=== PATIENT | male | born 1960 | race African-American/Black ===

== ENCOUNTER 2018-10-16 19:03 | Emergency (ER) | payer OTHER, SELFPAY ==
[2018-10-16 21:28] LABS: #Basophils 0.1 thou/uL (0.0-0.2); #Eosinphils 0.1 thou/uL (0.0-0.7); #Lymphocytes 2.5 thou/uL (1.20-3.40); #Monocytes 0.8 thou/uL (0.11-0.59); #Neutrophils 5.2 thou/uL (1.40-6.50); %Basophils 0.7 % (0.0-1.0); %Eosinophils 1.3 % (0.0-10.0); %Lymphocytes 29.1 % (21.0-51.0); %Monocytes 8.8 % (0.0-10.0); %Neutrophils 60.2 % (42.0-75.0); Hemoglobin 13.6 g/dL (14.0-18.0); Mean Corpuscular HGB CONC 32.1 g/dL (32.0-36.0); Mean Corpuscular Hemoglobin 26.2 pg (27.0-31.0); Mean Corpuscular Volume 81.8 fL (78.0-98.0); Mean Platelet Volume 7.1 fL (7.4-10.4); Platelet Count 272 thou/uL (130-400); RBC Distribution Width 10.8 % (11.5-14.5); Red Blood Cell (RBC) Count 5.18 mill/uL (4.70-6.10); White Blood Cell (WBC) Count 8.7 thou/uL (4.8-10.8)
--- NOTE | 2018-10-16 21:40 | RAD ---
THREE VIEWS OF THE RIGHT FOOT: 10/16/18 COMPARISON: None. HISTORY: Right foot pain. FINDINGS: Three views of the right foot shows no evidence of acute fracture or dislocation. Degenerative change is see in the intertarsal joint of the great toe. Soft tissue swelling is seen on the lateral aspect of the foot near the metatarsophalangeal joint. IMPRESSION: No evidence of acute osseous abnormality. POS: C
[2018-10-16 21:41] LABS: ALT (SGPT) 27 U/L (8-55); AST (SGOT) 25 U/L (5-34); Albumin 3.8 g/dL (3.5-5.0); Alkaline Phosphatase 76 U/L (40-150); Anion Gap 13 mmol/L (10-20); BUN (Urea Nitrogen) 15 mg/dL (8.4-25.7); Bilirubin, Total 1.1 mg/dL (0.2-1.2); Calc. Creatinine Clearance 0 mL/min (70-130); Calcium 9.9 mg/dL (7.8-10.44); Carbon Dioxide 27 mmol/L (22-29); Chloride 100 mmol/L (98-107); Estimated GFR-MDRD 74; Globulin 3.6 g/dL (2.4-3.5); Glucose 142 mg/dL (70-105); Potassium 4.4 mmol/L (3.5-5.1); Protein, Total 7.4 g/dL (6.0-8.3); Sodium 136 mmol/L (136-145)
[2018-10-16] MEDS ORDERED: Bacitracin Zinc 1 Packet ONE (22:24)
== END 2018-10-16 22:37 | disposition home or self-care (01) ==
LOC: ERS 19:03
DX: L97.519 Non-pressure chronic ulcer of other part of right foot with unspecified severity (principal); L03.115 Cellulitis of right lower limb; F17.210 Nicotine dependence, cigarettes, uncomplicated; E11.9 Type 2 diabetes mellitus without complications
CPT/HCPCS: 80053; 85025; C1776

== ENCOUNTER 2019-01-09 13:28 | Emergency (ER) | payer SELFPAY | END 2019-01-09 14:43 | disposition home or self-care (01) | LOC: ERS 13:28 | DX: E11.621 Type 2 diabetes mellitus with foot ulcer (principal); F17.210 Nicotine dependence, cigarettes, uncomplicated | CPT/HCPCS: 99282 ==

== ENCOUNTER 2019-01-31 09:04 | Outpatient (CLI) | payer OTHER ==
--- NOTE | 2019-01-31 14:19 | HP ---
HISTORY OF PRESENT ILLNESS: Mr. Gal García is a very pleasant 58-year-old gentleman, who presents [facility] for evaluation of an ulceration of the plantar surface of the right foot. The patient was referred to the [facility]ound Center by Kathie Nieves, his nurse practitioner on 01/26/2019. At this time, the patient was placed on a course of p.o. clindamycin. Today, the patient reports fever and chills. The patient states he has also been seen in the emergency department for the ulceration of the plantar surface of the right foot. PAST MEDICAL HISTORY: Diabetes mellitus. PAST SURGICAL HISTORY: Negative. MEDICATIONS: Clindamycin. ALLERGIES: NO KNOWN DIAGNOSED ALLERGIES. SOCIAL HISTORY: Social history is significant for tobacco use of 1 pack of cigarettes per day for 25 years. The patient also reports the consumption of 2 to 3 drinks approximately every 2 weeks. FAMILY HISTORY: Family history is significant for diabetes mellitus. The patient's mother was diagnosed with diabetes mellitus. Family history is negative for coronary artery disease. PHYSICAL EXAMINATION: VITAL SIGNS: Temperature 99.9, pulse 105, respirations 23, and blood pressure 159/96. Accu-Chek 281. GENERAL: A 58-year-old gentleman, lying on table in examination room, in [id number] distress. HEENT: Normocephalic and atraumatic. NECK: No nuchal rigidity. CHEST: Clear to auscultation. CV: Regular rate and rhythm. ABDOMEN: Soft. EXTREMITIES: An ulceration of the plantar surface of the right foot is present, which measures approximately 1.3 x 0.7 cm. Granulation tissue is present within the wound margins. No purulent drainage is associated with the wound. No maceration of the skin of the periwound is noted. A dorsalis pedis pulse and posterior tibial pulse are both palpable on the right. A large blister is present over the plantar surface of the right forefoot and mid foot. Hemorrhagic fluid is contained within the blister. An opening was made in the blister and cultures of the hemorrhagic fluid contained within the blister were obtained and sent for aerobic and anaerobic studies. Erythema of the dorsum of the right foot is present as well as erythema extending from the blister over the right lower leg. NEUROLOGIC: Grossly nonfocal. ASSESSMENT AND PLAN: 1. Lesions of right foot as described above. I have discussed the treatment plan with Dr. Harman Villalba and the patient will be referred to the emergency department for admission for cellulitis. I have explained to the patient that Surgical and Infectious Diseases consultations may be obtained. I have explained to the patient that imaging of the right foot may also be obtained. The patient understands and is in agreement with the preceding treatment plan. He agrees to be taken to the emergency department upon his discharge from clinic today. 2. Diabetes mellitus. The patient's Accu-Chek in clinic today is 281. Job ID: [id number]
== END 2019-01-31 09:05 | disposition home or self-care (01) ==
LOC: WCC 09:04
PROVIDERS: ATTEND Family Medicine
DX: L98.9 Disorder of the skin and subcutaneous tissue, unspecified (principal); E11.9 Type 2 diabetes mellitus without complications
CPT/HCPCS: 36416; 87070; 87077; 87186; 87205; 97602; 99203; G0463

== ENCOUNTER 2019-01-31 10:49 | Inpatient (IN) | payer SELFPAY ==
[~2019-01-31 10:49] MED LIST: ISOVUE-370 76%-LOCM 1 ML ONE
[2019-01-31] MEDS ORDERED: Adacel (T-DAP) 0.5 ML SYRINGE ONE (14:03)
[2019-01-31 14:05] LABS: Hemoglobin 14.1 g/dL (14.0-18.0); Mean Corpuscular HGB CONC 34.6 g/dL (32.0-36.0); Mean Corpuscular Hemoglobin 28.3 pg (27.0-31.0); Mean Corpuscular Volume 81.8 fL (78.0-98.0); Mean Platelet Volume 7.1 fL (7.4-10.4); Platelet Count 281 thou/uL (130-400); RBC Distribution Width 11.2 % (11.5-14.5); Red Blood Cell (RBC) Count 4.98 mill/uL (4.70-6.10); White Blood Cell (WBC) Count 18.1 thou/uL (4.8-10.8)
[2019-01-31 14:18] LABS: ALT (SGPT) 39 U/L (8-55); AST (SGOT) 22 U/L (5-34); Albumin 3.5 g/dL (3.5-5.0); Alkaline Phosphatase 97 U/L (40-150); Anion Gap 11 mmol/L (10-20); BUN (Urea Nitrogen) 13 mg/dL (8.4-25.7); Bilirubin, Total 1.2 mg/dL (0.2-1.2); Calc. Creatinine Clearance 0 mL/min (70-130); Calcium 9.5 mg/dL (7.8-10.44); Carbon Dioxide 26 mmol/L (22-29); Chloride 100 mmol/L (98-107); Estimated GFR-MDRD 83; Globulin 4.1 g/dL (2.4-3.5); Glucose 212 mg/dL (70-105); Protein, Total 7.6 g/dL (6.0-8.3); Sodium 133 mmol/L (136-145)
[2019-01-31 14:18] LABS: Band 3 % (5-11); Eosinophils 1 % (0-10); Lymphocytes 17 % (21-51); MDiff Complete? YES; Monocytes 4 % (0-10); Neutrophil 75 % (42-75); Platelet Morphology Comment Appears Adequate; RBC Morphology Normal
[2019-01-31] MEDS ORDERED: Clindamycin/D5W 900 mg/50 ml Premix Bag ONE (14:24)
[2019-01-31] MEDS ORDERED: Piperacillin/Tazobactam 4.5 GM VIAL ONE (15:01)
--- NOTE | 2019-01-31 15:08 | CT ---
CT RIGHT FOOT WITH CONTRAST: Date: 01/31/19 INDICATION: Numbness and tingling in the feet with right foot pain. COMPARISON: Right foot radiograph dated 10/16/18. FINDINGS: There is an ulceration seen subjacent to the fifth metatarsal head measuring 2.0 x approximately 1.5 cm. No definite drainable fluid collection is evident. There is mild cellulitis surrounding the plant ar ulceration. No destructive osteolysis is evident. There is mild scattered forefoot and midfoot ost eoarthrosis. IMPRESSION: 1. Plantar base wound underlying the fifth metatarsal head without evidence of a drainable fluid col lection. 2. Cellulitis surrounding the plantar base wound with prominent edematous change of the soft tissues of the right foot. 3. No destructive osteolysis is grossly evident to suggest the presence of osteomyelitis. POS: OFF
[2019-01-31] MEDS ORDERED: Ondansetron ODT 4 MG TAB SL PRN (18:37)
[2019-01-31] MEDS ORDERED: Ondansetron PF 4 MG/2 ML Vial IVP PRN (18:37)
[2019-01-31] MEDS ORDERED: Acetaminophen 325 MG TAB PO PRN (18:37)
[2019-01-31] MEDS: Sodium Chloride 0.9% 1,000 ML IV SCH (19:42)
[2019-01-31 19:58] VITALS: BMI 22.5
[2019-01-31] MEDS: Piperacillin/Tazobactam 3.375 GM in Sodium Chloride 0.9% 100 ML IVPB SCH (20:31)
[2019-01-31] MEDS ORDERED: Clindamycin/D5W 900 MG in Premix Bag 1 BAG IVPB SCH (22:00)
[2019-02-01] MEDS: Piperacillin/Tazobactam 3.375 GM in Sodium Chloride 0.9% 100 ML IVPB SCH (02:36)
[2019-02-01] MEDS: Sodium Chloride 0.9% 1,000 ML IV SCH ×2 (05:47→22:47)
[2019-02-01] MEDS ORDERED: Insulin Regular 300 UNITS/3 ML VIAL SC PRN (09:25)
[2019-02-01] MEDS ORDERED: Dextrose 5% in Water 1,000 ML IV PRN (09:25)
[2019-02-01] MEDS ORDERED: Dextrose 50% Abboject 50 ML SYRINGE IVP PRN (09:25)
[2019-02-01] MEDS ORDERED: Acetaminophen 325 MG TAB PO PRN (09:26)
[2019-02-01] MEDS ORDERED: metFORMIN 500 MG TAB PO SCH (09:30)
[2019-02-01] MEDS ORDERED: Lisinopril 2.5 MG TAB PO SCH (09:30)
[2019-02-01] MEDS ORDERED: Aspirin Chewable 81 MG TAB PO SCH (09:45)
[2019-02-01] MEDS ORDERED: Sodium Chloride 0.9% 1,000 ML IV SCH (11:00)
--- NOTE | 2019-02-01 11:27 | CON ---
DATE OF CONSULTATION: HISTORY OF PRESENT ILLNESS: Gal García is a 58-year-old black male, sent to the emergency room by Wound Care, Dr. Evans, for a right fifth toe. 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 He has been dealing with the ulcer in outpatient wound care. He has had a CAT scan and x-rays revealing osteomyelitis. On the plantar aspect of his right foot, there is a 1.5 cm to 2 cm neuropathic ulcer with communication in the metatarsophalangeal joint of the fifth toe. I have recommended amputation of the right fifth toe and metatarsal with postoperative wound VAC application. The patient is agreeable. He has been placed on vancomycin and Zosyn in the hospital. ALLERGIES: NONE. SOCIAL HISTORY: Tobacco, a cigar a day. Alcohol rarely. MEDICATIONS: At home, not listed in the hospital. He is on aspirin, clindamycin, Zosyn, vancomycin, metformin, and lisinopril. PAST SURGICAL HISTORY: Laparoscopic cholecystectomy. PAST MEDICAL HISTORY: Diabetes mellitus. REVIEW OF SYSTEMS: Ten-point noncontributory. PHYSICAL EXAMINATION: VITAL SIGNS: Temperature 98 degrees, pulse 81, and blood pressure 136/68. HEENT: Unremarkable. LUNGS: Clear to auscultation. CARDIAC: Regular rate and rhythm. No murmur or gallop. ABDOMEN: Soft and nontender. EXTREMITIES: Palpable femoral, popliteal, dorsalis pedis, and posterior tibial pulses. Right foot neuropathic ulcer beneath the metatarsophalangeal joint of fifth toe communicating to the bone and joint. Mild cellulitis. Mild edema. LABORATORY DATA: White count 18 and hemoglobin 14. Sodium 133, BUN 13, creatinine 1.1, and glucose 212. ASSESSMENT AND PLAN: Diabetic ulceration wound with communication in the right fifth toe and metatarsal. Recommend amputation of the right fifth toe and metatarsal. We will consult Wound Care. He has already established outpatient wound care. He will need wound VAC, postoperative use. He understands risks, benefits, and consents. Job ID: [id number]
[2019-02-01] MEDS ORDERED: Fentanyl 100 MCG/2 ML VIAL ONE ×2 (11:55→13:33)
[2019-02-01] MEDS ORDERED: Clindamycin/D5W 900 mg/50 ml Premix Bag ONE (12:00)
[2019-02-01] MEDS ORDERED: Promethazine HCl 25 MG/ML VIAL IM PRN (13:19)
[2019-02-01] MEDS ORDERED: Ondansetron HCl/PF 4 MG/2 ML Vial IVP PRN (13:19)
[2019-02-01] MEDS ORDERED: Promethazine HCl 25 MG/ML VIAL SLOW IVP PRN (13:19)
[2019-02-01] MEDS ORDERED: Acetaminophen 500 MG TAB PO PRN (13:26)
[2019-02-01] MEDS ORDERED: Ibuprofen 600 MG TAB PO PRN (13:26)
[2019-02-01] MEDS ORDERED: traMADol HCl 50 MG TAB PO PRN (13:26)
[2019-02-01] MEDS ORDERED: Clindamycin/D5W 900 MG in Premix Bag 1 BAG IVPB SCH (14:00)
--- NOTE | 2019-02-01 14:02 | HP ---
CHIEF COMPLAINT: Cellulitis to the right foot. HISTORY OF PRESENT ILLNESS: The patient is a 58-year-old male, who has actually been having foot pain for a couple of weeks. The pain has been attempted to be treated from an outpatient standpoint with clindamycin. He has been in the office, and it was noted to have demarcated areas of erythema and heat, and he was told that if it worsened, he will need followup in the emergency room for further evaluation. He has diabetes, and he was sent for wound care at [facility] to have debridement of his foot. There, Dr. Evans saw the patient and noted that the area of erythema had enlarged. The patient had reported that he had a temperature to 100.4. He had been on clindamycin for approximately 2 weeks without any improvement. It was evident at this point he needed probably inpatient care with IV antibiotics. He was sent to the emergency room, where the ER doctor noted the ulceration, the erythema, and the elevated white count and contacted Dr. Villalba for admission. There is noted proximal streaking of the erythema up his leg, which is a new finding. He has also been diaphoretic. PAST MEDICAL HISTORY: Aforementioned diabetes, poor compliance with medical care. PAST SURGICAL HISTORY: He has no prior surgical history. PAST PSYCHIATRY HISTORY: He has no prior psychiatric history. SOCIAL HISTORY: He is a former drug abuser, mainly using marijuana. He continues to currently smoke. He smokes cigars 1 a day. Denies alcohol intake. ALLERGIES: HE HAS NO KNOWN DRUG ALLERGIES. CURRENT MEDICATIONS: Include: 1. Keflex 250 q.i.d. 2. Bactrim DS bid 3. Clindamycin 150 mg t.i.d. REVIEW OF SYSTEMS: CONSTITUTIONAL: Denies chills, but admits to diaphoresis and has had a temperature to 100.4. HEENT: Denies drainage or pain from eyes, ears, or nose. CHEST: Denies cough or shortness of breath. CARDIOVASCULAR: Denies palpitations or chest pain. GI: Denies nausea, vomiting, or diarrhea. : Denies dysuria or blood in urine or stool. MUSCULOSKELETAL: He is here for the nonhealing wound on his right foot. No other pain in the major joints or muscles. SKIN: Noted for the diabetic right foot ulcer and erythematous swelling noted up to the ankle. NEUROLOGIC: Denies headaches, blurred vision, hypoesthesia, or areas of anesthesia. PHYSICAL EXAMINATION: At the time of admission, VITAL SIGNS: Blood pressure 129/74, pulse 97, respirations 17, temperature 100.4. Pain scale 0. O2 saturation 100% on room air. GENERAL: This is a well-developed, well-nourished male, in no acute distress. HEENT: Normocephalic and atraumatic. Pupils are equal, round, and reactive to light. Extraocular muscles are intact. TMs, nares, and pharynx are clear. NECK: Supple. Trachea, midline. CHEST: Clear to auscultation. HEART: Regular rate and rhythm without murmur. ABDOMEN: Soft and nontender without hepatosplenomegaly. : Deferred. EXTREMITIES: With aforementioned right foot ulceration with foul drainage and areas of surrounding erythema streaking up to the ankle. NEUROLOGIC: Cranial nerves are intact. Mental status is clear. Gait and cerebral function, not tested. Sensory exam is grossly intact. LABORATORY DATA: The lab work on admission showed WBCs 18.1, hemoglobin 14.1, hematocrit 40.7 with platelets at 281. Sodium 131, potassium 4.0, chloride 100 , CO2 of 26, BUN 13, creatinine 1.10, glucose at 212. On admission to the hospital, liver functions are unremarkable. CT of the lower extremity shows areas of soft tissue surrounding erythema, but no indication of bone erosion such as osteomyelitis or areas of drainable abscess. ASSESSMENT: 1. Nonhealing right foot diabetic ulceration. 2. Diabetes - noncompliance. PLAN: Plan will be to continue wound care, continue IV antibiotics, and serially re-evaluate the patient. He will be placed on diabetic diet with sliding scale. Surgical consultation has been asked to see the patient in the ER Job ID: [id number] [facility]
[2019-02-01] MEDS: Vancomycin HCl 1 GM in Premix Bag 1 BAG IVPB SCH ×2 (14:45→22:46)
[2019-02-01] MEDS: Piperacillin/Tazobactam 4.5 GM in Sodium Chloride 0.9% 100 ML IVPB SCH ×2 (14:46→17:16)
[2019-02-01] MEDS ORDERED: PROPOFOL 200 MG/20 ML VIAL ONE (15:22)
[2019-02-01] MEDS ORDERED: Ondansetron PF 4 MG/2 ML Vial ONE (15:22)
[2019-02-01] MEDS ORDERED: ePHEDrine 50 MG/ML VIAL ONE (15:22)
[2019-02-01] MEDS ORDERED: Ketorolac Tromethamine 30 MG/ML VIAL ONE (15:22)
[2019-02-01] MEDS ORDERED: Lidocaine 1% PF 5 ML VIAL ONE (15:22)
[2019-02-01] MEDS: traMADol HCl 50 MG TAB PO PRN (17:14)
--- NOTE | 2019-02-01 17:43 | OP ---
DATE OF PROCEDURE: 02/01/2019 PREOPERATIVE DIAGNOSES: Severe necrotizing infection, plantar left foot, undermining to the ankle and plantar and toward the foot and towards the fifth toe, left with neuropathic separate ulceration beneath the metatarsophalangeal joint of the fifth toe, foul-smelling purulent material, blistered skin. POSTOPERATIVE DIAGNOSES: Severe necrotizing infection, plantar left foot, undermining to the ankle and plantar and toward the foot and towards the fifth toe, left with neuropathic separate ulceration beneath the metatarsophalangeal joint of the fifth toe, foul-smelling purulent material, blistered skin, leaving a 5.5 cm plantar wound with undermining up towards the ankle and distally in the foot and distal to the fifth toe and metatarsal. Culture and sensitivity submitted. PROCEDURE PERFORMED: Extensive debridement of skin, soft tissue, subcutaneous tissue, connective tissue; excisional resection with 10 blade; pulse irrigation of wound; amputation of left fifth toe and metatarsal, left open; proximal tunneling of plantar towards the ankle, 5 to 6 cm; foul-smelling purulent material pulse irrigation. ANESTHESIA: General and LMA. HISTORY: The patient was seen and admitted from the emergency room. He had a neuropathic ulcer beneath the fifth metatarsal plantar joint that was chronic for several months and age for about 2 weeks ago. He stepped on an object at work and had a severe infection, covered by a blistered skin. The patient is a great risk for limb loss and it is unlikely that this wound will heal. He is in need of a left BK amputation, for which consent was not obtained prior to the operation. No good blood supply or palpable pedal pulses. DESCRIPTION OF PROCEDURE: The patient was taken to the operating room, where under general and LMA anesthesia, left lower extremity was prepared and draped in routine fashion. The patient's blistered skin was excised sharply from the plantar left foot. At this time, I removed a very large necrotic wound with foul-smelling purulent discharge, undermining proximally circumferentially with thin macerated multifocal purulent foci requiring excision of skin and subcutaneous tissue for a 5.5 to 6 cm diameter area, leaving the plantar wound, centered about the mid arch, proximal foot and distal foot medially. There was undermining between the plantar muscles up towards the ankle joint, opening the large cavity and tracked up towards the ankle joint. Necrotic soupified tissue was excised sharply. Culture submitted. Wound pulse irrigated. Left fifth toe and metatarsal resected with a racquet incision, resecting the metatarsal with a bone cutter and resecting it proximally with rongeurs. Wound was irrigated. Good hemostasis was obtained with cautery as there was good pulsatile bleeding. It is unlikely this wound will heal and he will probably need a left BKA. We will re-explore the wound tomorrow. Dry dressings applied. Job ID: [id number]
[2019-02-01] MEDS: metFORMIN 500 MG TAB PO SCH (21:03)
[2019-02-01] MEDS: Simvastatin 5 MG TAB PO SCH (21:03)
[2019-02-02] MEDS: Piperacillin/Tazobactam 4.5 GM in Sodium Chloride 0.9% 100 ML IVPB SCH ×4 (00:29→18:21)
[2019-02-02] MEDS ORDERED: Clindamycin/D5W 900 MG in Premix Bag 1 BAG IVPB SCH (04:00)
[2019-02-02] MEDS: Insulin Regular 300 UNITS/3 ML VIAL SC PRN (05:36)
[2019-02-02 05:59] LABS: #Eosinphils 0.3 thou/uL (0.0-0.7); #Lymphocytes 1.8 thou/uL (1.20-3.40); #Monocytes 1.2 thou/uL (0.11-0.59); #Neutrophils 8.9 thou/uL (1.40-6.50); %Basophils 0.2 % (0.0-1.0); %Eosinophils 2.6 % (0.0-10.0); %Lymphocytes 14.4 % (21.0-51.0); %Monocytes 9.9 % (0.0-10.0); %Neutrophils 72.9 % (42.0-75.0); Hemoglobin 10.8 g/dL (14.0-18.0); Mean Corpuscular HGB CONC 32.9 g/dL (32.0-36.0); Platelet Count 266 thou/uL (130-400); RBC Distribution Width 11.2 % (11.5-14.5); Red Blood Cell (RBC) Count 3.99 mill/uL (4.70-6.10); White Blood Cell (WBC) Count 12.2 thou/uL (4.8-10.8)
[2019-02-02 06:19] LABS: Anion Gap 9 mmol/L (10-20); BUN (Urea Nitrogen) 9 mg/dL (8.4-25.7); Calc. Creatinine Clearance 89 mL/min (70-130); Calcium 8.1 mg/dL (7.8-10.44); Carbon Dioxide 25 mmol/L (22-29); Cardiac Risk 4.8 (Less than 4.5); Chloride 105 mmol/L (98-107); Cholesterol 100 mg/dl (< 200 Desired); Estimated GFR-MDRD Greater than 90; Glucose 174 mg/dL (70-105); HDL Cholesterol 21 mg/dL (>60 Neg Risk); LDL Cholesterol, Calculated 63 mg/dL; Potassium 3.7 mmol/L (3.5-5.1); Sodium 135 mmol/L (136-145); Triglycerides 80 mg/dL (Less than 150)
[2019-02-02] MEDS: Lisinopril 2.5 MG TAB PO SCH (08:40)
[2019-02-02] MEDS: metFORMIN 500 MG TAB PO SCH ×2 (08:40→20:23)
[2019-02-02] MEDS: Aspirin Chewable 81 MG TAB PO SCH ×2 (08:41→08:51)
[2019-02-02] MEDS: Vancomycin HCl 1 GM in Premix Bag 1 BAG IVPB SCH (10:28)
[2019-02-02 10:34] LABS: Hemoglobin A1c 9.6 % (4.0-6.0)
--- NOTE | 2019-02-02 10:36 | PRG ---
DATE OF SERVICE: 02/02/2019 SUBJECTIVE: Gal García is doing well today. He remains afebrile. This morning, his white count is 12.2, down from 18 yesterday. Renal function is normal. Inspection of his foot reveals that he has tunneling as described intraoperatively. This tunnel cephalad obliquely toward the ankle joint. He has undermining with necrotic tissue still. He has a 5 cm diameter plantar wound around his arch. I have talked to him about the fact that this will not heal and he needs a below-knee amputation. I have offered a second opinion if he desires. The patient, however, wishes to proceed with below-knee amputation. We will ask geriatric case manager to begin process of supervisor counseling and guidance government's [employer] and other programs to help him financially for prosthesis and help him as he is not going to be able to work for the next 2 months or more. He will need to be in the hospital postoperative for several days as he is not a financially capable of going to rehab. He would need to gain stability and balance and ambulation and transfers prior to being discharged home. He will need a bedside commode, shower chair, walker, crutches, and wheelchair. Job ID: [id number]
[2019-02-02] MEDS ORDERED: Bupivacaine HCl 0.5%/Epinephrine 1:200,000/PF 30 ml Vial ONE (12:06)
[2019-02-02] MEDS ORDERED: PROPOFOL 200 MG/20 ML VIAL ONE (12:43)
[2019-02-02] MEDS ORDERED: Lidocaine 1% PF 5 ML VIAL ONE (12:43)
[2019-02-02] MEDS: Sodium Chloride 0.9% 1,000 ML IV SCH (13:02)
[2019-02-02] MEDS ORDERED: Fentanyl 100 MCG/2 ML VIAL ONE ×5 (13:54→16:02)
[2019-02-02] MEDS ORDERED: Midazolam HCl 2 mg/2 ml Vial ONE (13:59)
[2019-02-02] MEDS ORDERED: Lidocaine 1% (PF) 30 ML VIAL ONE (13:59)
[2019-02-02] MEDS ORDERED: Ketorolac Tromethamine 30 MG/ML VIAL IVP PRN (15:53)
[2019-02-02] MEDS ORDERED: traMADol HCl 50 MG TAB PO PRN (15:53)
[2019-02-02] MEDS: traMADol HCl 50 MG TAB PO PRN (18:31)
[2019-02-02] MEDS: Gabapentin 300 MG CAP PO SCH (20:23)
[2019-02-02] MEDS: Enoxaparin Sodium 40 MG/0.4 ML SYRINGE SC SCH (20:23)
[2019-02-02] MEDS: Simvastatin 5 MG TAB PO SCH (20:23)
--- NOTE | 2019-02-02 22:55 | OP ---
DATE OF PROCEDURE: 02/02/2019 PREOPERATIVE DIAGNOSES: Severe necrotizing infection, right foot; diabetes mellitus; diabetic infection. POSTOPERATIVE DIAGNOSES: Severe necrotizing infection, right foot; diabetes mellitus; diabetic infection. PROCEDURE PERFORMED: Right below-knee amputation. ANESTHESIA: General, regional. ESTIMATED BLOOD LOSS: 200 mL. BLOOD TRANSFUSION: None. DESCRIPTION OF PROCEDURE: The patient was taken to the operating room where under general anesthesia and regional, right lower extremity was prepared with ChloraPrep and draped in routine fashion. Incision was made for left [id number] amputation with a long posterior flap, skin, subcutaneous tissue and fascia, divided the muscular layers with cautery, vascular bundles between clamps, ligated with 2-0 silk ties. The tibia with cleared periosteum proximally, transected with a Gigli saw, bevelling the anterior edge cephalad, smoothened with a rasp. Fibula cut 1 inch above the cut edge of the tibia. Muscular layers were divided with cautery. Amputation stump sent to Pathology. Hemostasis was obtained with cautery, wound irrigated, fascia approximated with 2-0 Vicryl, skin with mejia. Sterile dressing applied. Job ID: [id number]
[2019-02-03] MEDS: Piperacillin/Tazobactam 4.5 GM in Sodium Chloride 0.9% 100 ML IVPB SCH ×4 (00:05→18:02)
[2019-02-03 04:54] LABS: #Basophils 0.1 thou/uL (0.0-0.2); #Eosinphils 0.3 thou/uL (0.0-0.7); #Lymphocytes 1.4 thou/uL (1.20-3.40); #Monocytes 1.1 thou/uL (0.11-0.59); #Neutrophils 6.3 thou/uL (1.40-6.50); %Basophils 0.6 % (0.0-1.0); %Eosinophils 3.1 % (0.0-10.0); %Lymphocytes 15.3 % (21.0-51.0); %Monocytes 11.8 % (0.0-10.0); %Neutrophils 69.3 % (42.0-75.0); Hemoglobin 9.7 g/dL (14.0-18.0); Mean Corpuscular HGB CONC 32.7 g/dL (32.0-36.0); Mean Corpuscular Hemoglobin 26.9 pg (27.0-31.0); Mean Corpuscular Volume 82.2 fL (78.0-98.0); Mean Platelet Volume 6.8 fL (7.4-10.4); Platelet Count 268 thou/uL (130-400); RBC Distribution Width 11.2 % (11.5-14.5); Red Blood Cell (RBC) Count 3.61 mill/uL (4.70-6.10); White Blood Cell (WBC) Count 9.1 thou/uL (4.8-10.8)
[2019-02-03 05:09] LABS: Anion Gap 8 mmol/L (10-20); BUN (Urea Nitrogen) 7 mg/dL (8.4-25.7); Calc. Creatinine Clearance 82 mL/min (70-130); Calcium 7.7 mg/dL (7.8-10.44); Carbon Dioxide 23 mmol/L (22-29); Chloride 109 mmol/L (98-107); Estimated GFR-MDRD 87; Glucose 141 mg/dL (70-105); Potassium 3.9 mmol/L (3.5-5.1); Sodium 136 mmol/L (136-145)
[2019-02-03] MEDS: metFORMIN 500 MG TAB PO SCH ×2 (08:24→21:03)
[2019-02-03] MEDS: Aspirin Chewable 81 MG TAB PO SCH (08:24)
[2019-02-03] MEDS: Lisinopril 2.5 MG TAB PO SCH (08:24)
[2019-02-03] MEDS: Alogliptin 25 MG TAB PO SCH (08:25)
[2019-02-03] MEDS: Gabapentin 300 MG CAP PO SCH ×3 (08:25→21:03)
--- NOTE | 2019-02-03 14:17 | PRG ---
DATE OF SERVICE: 02/03/2019 SUBJECTIVE: Gal García is doing well today. His pain is under good control from the regional anesthesia from his BKA. OBJECTIVE: VITAL SIGNS: Temperature 98.4 degrees, pulse 90, blood pressure 148/81. LUNGS: Clear to auscultation. CARDIAC: Regular rate and rhythm without murmur or gallop. ABDOMEN: Soft, nontender. Dressings, right BK stump, dry. LABORATORY DATA: This morning, his hemoglobin is 9.7. Basic metabolic profile is normal. Accu-Cheks 140 to 131. ASSESSMENT AND PLAN: Doing well after right [id number] amputation. Await screening rehab evaluation for a charitable bed. Otherwise, he would need to be in the hospital for a few days to gain stability and transfers and mobility and acquire the things he needs to go home such as wheelchair, walker, crutches. He may need a shower chair. He would follow up in my office in 2 weeks for staple removal. [facility] will leave a stump service order expediter. Tomorrow, they will remove his dressings and begin washing the stump daily with soap and water and apply antibiotic ointment and Telfa and a stump service order expediter. Dr. Mayberry is covering the weekend. We will see him. orchid worker will see him regarding programs such as [facility], [facility] [employer] [facility] to help him financially and help him financially acquire the prosthesis, and he will not be able to work for 3 months, and there may be short-term disability available for him. Anticipate discharge later the or Thursday. Currently, I have Tylenol, Ultram, and ibuprofen ordered. I have plan to stop his piperacillin in the morning. He will go home without antibiotics. We have discontinued his vancomycin and clindamycin. Hopefully, we can avoid narcotics and Ultram, gabapentin, and Tylenol will be sufficed for pain control. I have expressed to the patient and his the importance of preventing knee contracture by placing blankets and pillows beneath his amputation stump below the knee to promote extension and avoid contracture. I have emphasized safe transfers to hopefully avoid falling and injuring his [id number]-oxse amputation and conversion and reoperation. Job ID: [id number]
[2019-02-03] MEDS: Simvastatin 5 MG TAB PO SCH (21:03)
[2019-02-03] MEDS: Enoxaparin Sodium 40 MG/0.4 ML SYRINGE SC SCH (21:03)
[2019-02-04] MEDS: Piperacillin/Tazobactam 4.5 GM in Sodium Chloride 0.9% 100 ML IVPB SCH ×2 (00:12→05:10)
[2019-02-04 06:01] LABS: #Basophils 0.1 thou/uL (0.0-0.2); #Eosinphils 0.1 thou/uL (0.0-0.7); #Lymphocytes 1.7 thou/uL (1.20-3.40); #Monocytes 1.1 thou/uL (0.11-0.59); #Neutrophils 8.2 thou/uL (1.40-6.50); %Basophils 0.5 % (0.0-1.0); %Eosinophils 1.2 % (0.0-10.0); %Lymphocytes 15.5 % (21.0-51.0); %Monocytes 9.6 % (0.0-10.0); %Neutrophils 73.1 % (42.0-75.0); Hemoglobin 9.6 g/dL (14.0-18.0); Mean Corpuscular HGB CONC 32.7 g/dL (32.0-36.0); Mean Corpuscular Volume 82.5 fL (78.0-98.0); Mean Platelet Volume 6.4 fL (7.4-10.4); Platelet Count 285 thou/uL (130-400); RBC Distribution Width 11.3 % (11.5-14.5); Red Blood Cell (RBC) Count 3.54 mill/uL (4.70-6.10); White Blood Cell (WBC) Count 11.2 thou/uL (4.8-10.8)
[2019-02-04 06:19] LABS: Anion Gap 10 mmol/L (10-20); BUN (Urea Nitrogen) 8 mg/dL (8.4-25.7); Calc. Creatinine Clearance 87 mL/min (70-130); Carbon Dioxide 23 mmol/L (22-29); Chloride 107 mmol/L (98-107); Estimated GFR-MDRD Greater than 90; Glucose 86 mg/dL (70-105); Potassium 3.8 mmol/L (3.5-5.1); Sodium 136 mmol/L (136-145)
[2019-02-04] MEDS: Alogliptin 25 MG TAB PO SCH (09:45)
[2019-02-04] MEDS: metFORMIN 500 MG TAB PO SCH ×2 (09:45→20:24)
[2019-02-04] MEDS: Aspirin Chewable 81 MG TAB PO SCH (09:45)
[2019-02-04] MEDS: Ramipril 5 MG CAP PO SCH (09:46)
[2019-02-04] MEDS: Gabapentin 300 MG CAP PO SCH ×3 (09:46→20:24)
[2019-02-04] MEDS: Insulin Regular 300 UNITS/3 ML VIAL SC PRN (12:00)
[2019-02-04] MEDS ORDERED: Triple Antibiotic Oint 1 GM Packet TOP SCH (13:30)
[2019-02-04] MEDS: Simvastatin 5 MG TAB PO SCH (20:23)
[2019-02-04] MEDS: Enoxaparin Sodium 40 MG/0.4 ML SYRINGE SC SCH (20:25)
--- NOTE | 2019-02-04 20:34 | PDOC.GSPN ---
Surgery Progress Note: Subj - Subjective Narrative: Patient denies any significant pain. Dressing was just changed when I saw him and stump administrative supervisor on. He is learning how to care for his stump. He is getting around well with a walker. He does not want to go to rehabilitation. Once he is able to perform dressing changes and place the stump administrative supervisor he is okay to go from a surgery standpoint. He is to follow-up with Dr. Leon for staple removal. Surgery Progress Note: Obj - Vital signs Vital signs: Vital Signs - Most Recent Temp Pulse Resp BP Pulse Ox 98.0 F 91 16 144/87 H 97 02/04/19 20:00 02/04/19 20:00 02/04/19 20:00 02/04/19 20:00 02/04/19 20:00 Surgery Progress Note: Results - Labs Result Diagrams: 02/04/19 05:32 02/04/19 05:32 Lab results: Laboratory Results - last 24 hr 02/04/19 02/04/19 02/04/19 11:16 16:59 19:18 POC Glucose 157 H 107 108
[2019-02-05 05:40] LABS: #Eosinphils 0.2 thou/uL (0.0-0.7); #Lymphocytes 1.7 thou/uL (1.20-3.40); #Neutrophils 7.6 thou/uL (1.40-6.50); %Basophils 0.4 % (0.0-1.0); %Eosinophils 1.9 % (0.0-10.0); %Monocytes 9.8 % (0.0-10.0); Hemoglobin 9.4 g/dL (14.0-18.0); Mean Corpuscular HGB CONC 33.1 g/dL (32.0-36.0); Mean Corpuscular Hemoglobin 27.4 pg (27.0-31.0); Mean Corpuscular Volume 82.7 fL (78.0-98.0); Mean Platelet Volume 6.5 fL (7.4-10.4); Platelet Count 288 thou/uL (130-400); RBC Distribution Width 11.2 % (11.5-14.5); Red Blood Cell (RBC) Count 3.41 mill/uL (4.70-6.10); White Blood Cell (WBC) Count 10.6 thou/uL (4.8-10.8)
[2019-02-05 06:07] LABS: Anion Gap 10 mmol/L (10-20); BUN (Urea Nitrogen) 7 mg/dL (8.4-25.7); Calc. Creatinine Clearance 100 mL/min (70-130); Calcium 8.1 mg/dL (7.8-10.44); Carbon Dioxide 24 mmol/L (22-29); Chloride 107 mmol/L (98-107); Estimated GFR-MDRD Greater than 90; Glucose 107 mg/dL (70-105); Potassium 3.8 mmol/L (3.5-5.1); Sodium 137 mmol/L (136-145)
[2019-02-05 07:31] VITALS: TEMP 97.9
[2019-02-05] MEDS: Gabapentin 300 MG CAP PO SCH (08:20)
[2019-02-05] MEDS: metFORMIN 500 MG TAB PO SCH (08:20)
[2019-02-05] MEDS: Aspirin Chewable 81 MG TAB PO SCH (08:20)
[2019-02-05] MEDS: Alogliptin 25 MG TAB PO SCH (08:20)
[2019-02-05] MEDS ORDERED: Triple Antibiotic Oint 1 GM Packet TOP SCH (09:00)
[2019-02-05] MEDS: Ramipril 5 MG CAP PO SCH (14:38)
[2019-02-05 14:39] VITALS: BP 148/78
== END 2019-02-05 14:37 | disposition home or self-care (01) | DRG 617 ==
LOC: ERS 10:49 → T4-A 18:10
PROVIDERS: ADMIT Specialist; ATTEND Specialist
PROC: 0Y6X0Z1 Detachment at Right 5th Toe, High, Open Approach (ICD-10-PCS; 2019-02-01)
PROC: 0JBQ0ZZ Excision of Right Foot Subcutaneous Tissue and Fascia, Open Approach (ICD-10-PCS; 2019-02-01)
PROC: 0Y6H0Z1 Detachment at Right Lower Leg, High, Open Approach (ICD-10-PCS; principal; 2019-02-02)
DX: E11.628 Type 2 diabetes mellitus with other skin complications (principal); L03.115 Cellulitis of right lower limb; E11.621 Type 2 diabetes mellitus with foot ulcer; L97.519 Non-pressure chronic ulcer of other part of right foot with unspecified severity; F17.290 Nicotine dependence, other tobacco product, uncomplicated; Z91.19 Patient's noncompliance with other medical treatment and regimen; Z90.49 Acquired absence of other specified parts of digestive tract
CPT/HCPCS: 36415; 36416; 80048; 80053; 80061; 83036; 83605; 85025; 86850; 86900; 86901; 87040; 87070; 87076; 87077; 87186; 87205; 88305; 88307; 88311; 90471; 90715; 96365; 96367; J0670; J1650; J1885; J2001; J2250; J2405; J2543; J2704; J3010; J3370; J3490; L8440; Q9966

== ENCOUNTER 2019-02-08 13:07 | Emergency (ER) | payer SELFPAY | END 2019-02-08 13:43 | disposition home or self-care (01) | LOC: ERS 13:07 | DX: T87.81 Dehiscence of amputation stump (principal); I10 Essential (primary) hypertension; E11.9 Type 2 diabetes mellitus without complications; F17.210 Nicotine dependence, cigarettes, uncomplicated; Z79.84 Long term (current) use of oral hypoglycemic drugs; Z79.899 Other long term (current) drug therapy; W19.XXXA Unspecified fall, initial encounter | CPT/HCPCS: 12020 ==

== ENCOUNTER 2020-12-31 14:10 | Emergency (ER) | payer SELFPAY ==
[2020-12-31 15:15] LABS: #Eosinphils 0.1 thou/uL (0.0-0.7); #Lymphocytes 1.3 thou/uL (1.20-3.40); #Monocytes 0.5 thou/uL (0.11-0.59); #Neutrophils 3.8 thou/uL (1.40-6.50); %Basophils 0.3 % (0.0-1.0); %Eosinophils 2.1 % (0.0-10.0); %Lymphocytes 22.9 % (21.0-51.0); %Monocytes 9.3 % (0.0-10.0); %Neutrophils 65.4 % (42.0-75.0); Hemoglobin 10.4 g/dL (14.0-18.0); Mean Corpuscular HGB CONC 31.8 g/dL (32.0-36.0); Mean Corpuscular Volume 84.8 fL (78.0-98.0); Mean Platelet Volume 7.5 fL (7.4-10.4); Platelet Count 223 thou/uL (130-400); RBC Distribution Width 11.5 % (11.5-14.5); Red Blood Cell (RBC) Count 3.84 mill/uL (4.70-6.10); White Blood Cell (WBC) Count 5.8 thou/uL (4.8-10.8)
[2020-12-31 15:37] LABS: ALT (SGPT) 21 U/L (8-55); AST (SGOT) 33 U/L (5-34); Alkaline Phosphatase 58 U/L (40-110); Anion Gap 7 mmol/L (10-20); BUN (Urea Nitrogen) 18 mg/dL (8.4-25.7); Bilirubin, Total 0.6 mg/dL (0.2-1.2); Calc. Creatinine Clearance 0 mL/min (70-130); Calcium 8.6 mg/dL (7.8-10.44); Carbon Dioxide 29 mmol/L (23-31); Chloride 106 mmol/L (98-107); Globulin 3.2 g/dL (2.4-3.5); Glucose 92 mg/dL (80-115); Potassium 3.9 mmol/L (3.5-5.1); Protein, Total 6.2 g/dL (5.8-8.1); Sodium 138 mmol/L (136-145)
== END 2020-12-31 19:13 | disposition home or self-care (01) ==
LOC: ERS 14:10
DX: R60.0 Localized edema (principal); I10 Essential (primary) hypertension; E11.9 Type 2 diabetes mellitus without complications; F17.210 Nicotine dependence, cigarettes, uncomplicated; Z79.899 Other long term (current) drug therapy
CPT/HCPCS: 36415; 80053; 83880; 85025; 85379; 93005